=== PATIENT | male | born 1960 | race African-American/Black ===

== ENCOUNTER 2022-03-08 08:29 | Outpatient (CLI) | payer OTHER | END 2022-03-08 08:30 | disposition home or self-care (01) | LOC: CSHMRI 08:29 | PROVIDERS: ATTEND Family Medicine | DX: M48.061 Spinal stenosis, lumbar region without neurogenic claudication (principal); M51.16 Intervertebral disc disorders with radiculopathy, lumbar region; M47.26 Other spondylosis with radiculopathy, lumbar region; M47.817 Spondylosis without myelopathy or radiculopathy, lumbosacral region | CPT/HCPCS: 72100; 72148 ==

== ENCOUNTER 2023-03-08 15:24 | Outpatient (CLI) | payer MEDICAID, OTHER | END 2023-03-08 15:25 | disposition home or self-care (01) | LOC: CSHRAD 15:24 | PROVIDERS: ATTEND Family Medicine | DX: M25.511 Pain in right shoulder (principal); M25.512 Pain in left shoulder; M19.012 Primary osteoarthritis, left shoulder ==

== ENCOUNTER 2023-12-19 15:43 | Outpatient (CLI) | payer OTHER | END 2023-12-19 15:44 | disposition home or self-care (01) | LOC: CSHMRI 15:43 | PROVIDERS: ATTEND Family Medicine | DX: R20.0 Anesthesia of skin (principal); M50.30 Other cervical disc degeneration, unspecified cervical region | CPT/HCPCS: 72141 ==

== ENCOUNTER 2024-09-16 20:44 | Emergency (ER) | payer OTHER ==
[2024-09-16] MEDS ORDERED: chlorproMAZINE HCl 50 MG/2 ML AMP IM SCH (21:15)
== END 2024-09-16 21:38 | disposition home or self-care (01) ==
LOC: CSHERS 20:44
DX: R06.6 Hiccough (principal); F17.210 Nicotine dependence, cigarettes, uncomplicated; J98.8 Other specified respiratory disorders; I10 Essential (primary) hypertension
CPT/HCPCS: 96372; 99283; J3230

== ENCOUNTER → 2025-05-24 | Emergency (ER) | payer OTHER ==
[2025-05-24 16:52] LABS: #Basophils Less than 0.03 10x3/uL (0.0-0.2); #Eosinophils 0.14 10x3/uL (0.0-0.5); #Monocytes 0.34 10x3/uL (0.0-1.1); #Neutrophils 1.45 10x3/uL (1.5-8.4); %Basophils 0.6 % (0.0-2.0); %Eosinophils 4.1 % (0.0-6.0); %Lymphocytes 43.5 % (18.0-47.0); %Monocytes 9.9 % (0.0-10.0); %Neutrophils 41.9 % (40.0-75.0); Hematocrit 34.6 % (38.8-50.0); Hemoglobin 12.0 g/dL (13.5-17.5); Mean Corpuscular Hemoglobin 32.4 pg (27.0-33.0); Mean Corpuscular Volume 93.5 fL (81.2-95.1); Platelet Count 166 10x3/uL (150-450); Red Blood Cell (RBC) Count 3.70 10x6/uL (4.32-5.72); White Blood Cell (WBC) Count 3.45 10x3/uL (3.5-10.5)
[2025-05-24 17:25] LABS: ALT (SGPT) 26 U/L (Less than 45); AST (SGOT) 28 U/L (11-34); Albumin 4.0 g/dL (3.1-4.5); Alkaline Phosphatase 43 U/L (40-110); Anion Gap 11 mmol/L (10-20); BUN (Urea Nitrogen) 14 mg/dL (8.4-25.7); Bilirubin, Total 0.7 mg/dL (0.3-1.2); Calc. Creatinine Clearance 0 mL/min (70-130); Calcium 8.6 mg/dL (7.8-10.44); Carbon Dioxide 24 mmol/L (23-31); Chloride 105 mmol/L (98-107); Globulin 2.8 g/dL (2.4-3.5); Glucose 128 mg/dL (80-115); Potassium 4.2 mmol/L (3.5-5.1); Sodium 136 mmol/L (136-145)
[2025-05-24 17:31] LABS: Troponin I Less than 0.010 ng/mL (< 0.028)
== END ==
LOC: CSHERS 15:26
DX: Z53.21 Procedure and treatment not carried out due to patient leaving prior to being seen by health care provider (principal)
CPT/HCPCS: 36415; 71045; 80053; 83880; 84484; 85025; 93970

== ENCOUNTER 2025-06-04 11:53 | Inpatient (IN) | payer OTHER ==
[2025-06-04] MEDS ORDERED: Ondansetron PF 4 MG/2 ML Vial ONE (12:04)
[2025-06-04] MEDS ORDERED: Nitroglycerin 2% Ointment 1 INCH/1 GM Packet ONE (12:10)
[2025-06-04] MEDS ORDERED: Ketorolac Tromethamine 30 MG (1 mL) VIAL ONE (12:10)
[2025-06-04 12:24] LABS: #Basophils Less than 0.03 10x3/uL (0.0-0.2); #Eosinophils 0.13 10x3/uL (0.0-0.5); #Monocytes 0.79 10x3/uL (0.0-1.1); #Neutrophils 3.46 10x3/uL (1.5-8.4); %Basophils 0.3 % (0.0-2.0); %Eosinophils 1.9 % (0.0-6.0); %Lymphocytes 33.7 % (18.0-47.0); %Monocytes 11.8 % (0.0-10.0); %Neutrophils 52.0 % (40.0-75.0); Hematocrit 37.8 % (38.8-50.0); Hemoglobin 13.0 g/dL (13.5-17.5); Mean Corpuscular Hemoglobin 31.8 pg (27.0-33.0); Mean Corpuscular Volume 92.4 fL (81.2-95.1); Platelet Count 152 10x3/uL (150-450); Red Blood Cell (RBC) Count 4.09 10x6/uL (4.32-5.72); White Blood Cell (WBC) Count 6.67 10x3/uL (3.5-10.5)
[2025-06-04 12:34] LABS: Acetaminophen Less than 10 mcg/mL (Less than 10); Lipase 18 U/L (8-78); Salicylate Less than 8.0 mg/dL (Less than 8.0)
[2025-06-04 12:35] LABS: ALT (SGPT) 19 U/L (Less than 45); AST (SGOT) 24 U/L (11-34); Albumin 4.0 g/dL (3.1-4.5); Alkaline Phosphatase 55 U/L (40-110); Anion Gap 13 mmol/L (10-20); BUN (Urea Nitrogen) 11 mg/dL (8.4-25.7); Bilirubin, Total 1.0 mg/dL (0.3-1.2); Calc. Creatinine Clearance 0 mL/min (70-130); Calcium 8.9 mg/dL (7.8-10.44); Carbon Dioxide 21 mmol/L (23-31); Chloride 105 mmol/L (98-107); Globulin 3.3 g/dL (2.4-3.5); Glucose 161 mg/dL (80-115); Potassium 4.3 mmol/L (3.5-5.1); Sodium 135 mmol/L (136-145)
[2025-06-04 12:41] LABS: Troponin I Less than 0.010 ng/mL (< 0.028)
[2025-06-04 12:46] LABS: D-Dimer Test 2.98 mcg/mL (0.19-0.50); INR-International Normal Ratio 1.0; PTT 25.8 sec (22.0-33.0); Prothrombin Time 10.5 sec (9.5-12.1)
[2025-06-04] MEDS ORDERED: Enoxaparin 60 MG (0.6 mL) SYRINGE ONE (13:17)
[2025-06-04] MEDS ORDERED: Enoxaparin 80 MG (0.8 mL) SYRINGE ONE (13:19)
[2025-06-04] MEDS ORDERED: Senokot S 8.6-50 MG TAB PO PRN (14:09)
[2025-06-04] MEDS ORDERED: Ondansetron PF 4 MG/2 ML Vial IVP PRN (14:09)
[2025-06-04 14:31] VITALS: BMI 23.2
[2025-06-04 14:59] LABS: Cardiac Risk 2.7 (Less than 4.5); Cholesterol 158.0 mg/dl (< 200 Desired); HDL Cholesterol 59.0 mg/dL (>60 Neg Risk); LDL Cholesterol, Calculated 83.0 mg/dL; Triglycerides 78.0 mg/dL (Less than 150)
[2025-06-04] MEDS: PNEUMOC 20-VAL CONJ-DIP CRM/PF 0.5 ML SYRINGE IM ONE (15:05)
[2025-06-04] MEDS: FLU (Fluarix Triv) 25-26 (6MOS UP)/PF 45 MCG/0.5 ML Syringe IM ONE (15:05)
[2025-06-04] MEDS ORDERED: Albuterol 2.5 MG (3 mL) NEB NEB PRN (18:23)
[2025-06-04] MEDS: Ketorolac Tromethamine 30 MG (1 mL) VIAL IVP PRN (20:22)
[2025-06-04] MEDS: Benztropine 1 MG TAB PO SCH (20:24)
[2025-06-04] MEDS: risperiDONE 1 MG TAB PO SCH (20:24)
[2025-06-04] MEDS: Famotidine 20 MG TAB PO SCH (20:24)
[2025-06-04] MEDS: Sertraline 100 MG TAB PO SCH (20:24)
[2025-06-04] MEDS: Acetaminophen 325 MG TAB PO PRN (20:26)
[2025-06-04] MEDS: Enoxaparin 80 MG (0.8 mL) SYRINGE SC SCH (23:39)
[2025-06-05 05:14] LABS: Platelet Count 133 10x3/uL (150-450)
[2025-06-05 05:15] LABS: #Basophils Less than 0.03 10x3/uL (0.0-0.2); #Eosinophils 0.19 10x3/uL (0.0-0.5); #Monocytes 0.58 10x3/uL (0.0-1.1); #Neutrophils 3.63 10x3/uL (1.5-8.4); %Basophils 0.4 % (0.0-2.0); %Eosinophils 3.4 % (0.0-6.0); %Lymphocytes 19.7 % (18.0-47.0); %Monocytes 10.5 % (0.0-10.0); %Neutrophils 65.6 % (40.0-75.0); Hematocrit 34.4 % (38.8-50.0); Hemoglobin 11.6 g/dL (13.5-17.5); Mean Corpuscular Hemoglobin 32.0 pg (27.0-33.0); Mean Corpuscular Volume 95.0 fL (81.2-95.1); Red Blood Cell (RBC) Count 3.62 10x6/uL (4.32-5.72); White Blood Cell (WBC) Count 5.53 10x3/uL (3.5-10.5)
[2025-06-05 05:21] LABS: Anion Gap 10 mmol/L (10-20); BUN (Urea Nitrogen) 12 mg/dL (8.4-25.7); Calc. Creatinine Clearance 104 mL/min (70-130); Calcium 8.6 mg/dL (7.8-10.44); Carbon Dioxide 26 mmol/L (23-31); Chloride 106 mmol/L (98-107); Glucose 117 mg/dL (80-115); Potassium 4.0 mmol/L (3.5-5.1); Sodium 138 mmol/L (136-145)
[2025-06-05] MEDS: Apixaban 5 MG TAB PO SCH (09:28)
[2025-06-05] MEDS: Losartan 50 MG TAB PO SCH (09:29)
[2025-06-06 05:08] LABS: Hematocrit 34.3 % (38.8-50.0); Hemoglobin 11.8 g/dL (13.5-17.5)
[2025-06-06 13:29] LABS: Glucose, Urine (Dipstick) Normal (Negative); Leukocyte Negative (Negative); Protein, Urine (Dipstick) 15 mg/dl (Neg-Trace); Specific Gravity, Urine 1.020 (1.005-1.030)
[2025-06-06 13:54] LABS: Bacteria/HPF 1+ HPF (None Seen); CAUTI Indications for Culture Alt mental st,lethar; Mucous/LPF 2+ LPF (<2+)
[2025-06-06 13:55] LABS: Urine Culture Reflex No No
[2025-06-07 04:27] LABS: #Basophils Less than 0.03 10x3/uL (0.0-0.2); #Eosinophils 0.12 10x3/uL (0.0-0.5); #Monocytes 0.47 10x3/uL (0.0-1.1); #Neutrophils 2.35 10x3/uL (1.5-8.4); %Basophils 0.3 % (0.0-2.0); %Eosinophils 3.0 % (0.0-6.0); %Lymphocytes 25.7 % (18.0-47.0); %Monocytes 11.8 % (0.0-10.0); %Neutrophils 59.2 % (40.0-75.0); Hematocrit 33.8 % (38.8-50.0); Hemoglobin 11.9 g/dL (13.5-17.5); Mean Corpuscular Hemoglobin 32.8 pg (27.0-33.0); Mean Corpuscular Volume 93.1 fL (81.2-95.1); Platelet Count 146 10x3/uL (150-450); Red Blood Cell (RBC) Count 3.63 10x6/uL (4.32-5.72); White Blood Cell (WBC) Count 3.97 10x3/uL (3.5-10.5)
[2025-06-07 04:41] LABS: Anion Gap 13 mmol/L (10-20); BUN (Urea Nitrogen) 20 mg/dL (8.4-25.7); Calc. Creatinine Clearance 78 mL/min (70-130); Calcium 9.1 mg/dL (7.8-10.44); Carbon Dioxide 26 mmol/L (23-31); Chloride 103 mmol/L (98-107); Glucose 118 mg/dL (80-115); Potassium 4.1 mmol/L (3.5-5.1); Sodium 138 mmol/L (136-145)
[2025-06-07 16:20] VITALS: BP 111/70; TEMP 98.3
[2025-06-12] MEDS ORDERED: Apixaban 5 MG TAB PO SCH (09:00)
== END 2025-06-07 17:31 | disposition home or self-care (01) | DRG 175 ==
LOC: CSHERS 11:53 → CSHTELE 13:44
PROVIDERS: ADMIT Hospitalist; ATTEND Internal Medicine
PROC: 3E0234Z Introduction of Serum, Toxoid and Vaccine into Muscle, Percutaneous Approach (ICD-10-PCS; principal; 2025-06-04)
DX: I26.99 Other pulmonary embolism without acute cor pulmonale (principal); J96.01 Acute respiratory failure with hypoxia; I82.402 Acute embolism and thrombosis of unspecified deep veins of left lower extremity; R07.9 Chest pain, unspecified; I10 Essential (primary) hypertension; I25.10 Atherosclerotic heart disease of native coronary artery without angina pectoris; E78.5 Hyperlipidemia, unspecified; Z88.0 Allergy status to penicillin; F32.A Depression, unspecified; Z86.73 Personal history of transient ischemic attack (TIA), and cerebral infarction without residual deficits; Z98.890 Other specified postprocedural states; Z83.3 Family history of diabetes mellitus; Z82.49 Family history of ischemic heart disease and other diseases of the circulatory system; Z79.52 Long term (current) use of systemic steroids; Z79.899 Other long term (current) drug therapy; Z23 Encounter for immunization
CPT/HCPCS: 36415; 71045; 71275; 74174; 80048; 80053; 80061; 80307; 81001; 83036; 83690; 83880; 84145; 84153; 84443; 84484; 85014; 85018; 85025; 85379; 85610; 85730; 93005; 93306; 93970; 94760; 94762; 96372; 96374; 96375; J1650; J1885; J2270; J2405